=== PATIENT | male | born 1960 | race African-American/Black ===

== ENCOUNTER 2021-03-21 04:12 | Inpatient (IN) ==
[2021-03-21] MEDS ORDERED: SODIUM CHLORIDE 0.9% 1,000 ML IV STA (05:01)
[2021-03-21] MEDS: PANTOPRAZOLE INJ 200 MG in SODIUM CHLORIDE 0.9% 250 ML IV SCH (05:55)
[2021-03-21 06:13] LABS: Basophils % 0.1 % (0.0-0.8); Hematocrit 44.4 VOL% (42.0-52.0); Hemoglobin 14.9 GM/DL (14.0-18.0); Immature Granulocytes % 0.6 %; Immature Granulocytes Absolute 0.07 #; Lymphocytes # 0.8 10*3/uL (1.4-4.0); Lymphocytes % 6.8 % (21.2-54.2); Mean Corpuscular HGB Conc 33.6 GM/DL (32-36); Mean Corpuscular Volume 80.1 FL (87-102); Monocytes % 4.9 % (1.7-12.7); NRBC # 0.02 10*3/uL; Neutrophils % 87.6 % (38.7-73.9); Red Blood Count 5.54 MC/CUMM (3.8-5.5); Red Cell Distribution Width 17.5 % (9.3-17.3); White Blood Count 11.4 T/CUMM (4-12)
[2021-03-21 06:21] LABS: Platelet Count 50 T/CUMM (130-400)
[2021-03-21 06:23] LABS: INR 1.2; PT Patient Result 13.2 SECS (10.5-12.0); Partial Thromboplastin Time 26.6 SECS (23.9-33.8)
[2021-03-21 06:24] LABS: Albumin 2.3 G/DL (3.4-5.0); Bilirubin,Total 1.2 MG/DL (0.20-1.00); Calcium 8.3 MG/DL (8.5-10.1); Osmolality,Calculated 299.1 MOS/KG (273-304); Potassium 4.2 MMOL/L (3.5-5.1); Total Protein 5.6 G/DL (6.4-8.2)
[2021-03-21 06:45] LABS: Hypochromasia 1+; Microcytosis 1+
[2021-03-21 06:46] LABS: Ovalocytes Slight; Platelet Estimate Decreased
[2021-03-21] MEDS ORDERED: OCTREOTIDE 100 MCG/ML SYRINGE IV STA (07:20)
[2021-03-21] MEDS: OCTREOTIDE 500 MCG in SODIUM CHLORIDE 0.9% 100 ML IV SCH (08:07)
[2021-03-21] MEDS ORDERED: ONDANSETRON 4 MG/2 ML VIAL IV PRN ×2 (08:20)
[2021-03-21] MEDS ORDERED: GLUCAGON 1 MG VIAL IM PRN ×2 (08:20)
[2021-03-21] MEDS ORDERED: ACETAMINOPHEN 325 MG TABLET PO PRN ×2 (08:20→15:19)
[2021-03-21] MEDS ORDERED: DEXTROSE 50% 25 GM/50 ML VIAL IV PRN ×2 (08:20)
[2021-03-21] MEDS ORDERED: SODIUM CHLORIDE 0.45% 1,000 ML IV SCH (08:30)
[2021-03-21] MEDS: DEXT 5% NACL 0.9% KCL 20 MEQ 20 MEQ/1,000 ML BAG IV SCH (14:25)
[2021-03-21] MEDS: LEVOFLOXACIN INJ 500 MG/100 ML PREMIX IV SCH (14:25)
[2021-03-21] MEDS ORDERED: ERGOCALCIFEROL 50,000 UNIT CAPSULE PO SCH (15:30)
[2021-03-21] MEDS: SILVER SULFADIAZINE 1% CREAM 25 GM TUBE TOP SCH (17:00)
[2021-03-21] MEDS: methylPREDNISolone SOD SUC 125 MG/2 ML VIAL IV SCH (17:09)
[2021-03-21] MEDS: ALBUTEROL/IPRATROPIUM 3 ML NEB RESP TX SCH (20:30)
[2021-03-22] MEDS: methylPREDNISolone SOD SUC 125 MG/2 ML VIAL IV SCH ×3 (01:29→17:19)
[2021-03-22 02:22] LABS: Albumin 2.1 G/DL (3.4-5.0); Bilirubin,Total 0.8 MG/DL (0.20-1.00); Calcium 8.4 MG/DL (8.5-10.1); Osmolality,Calculated 292.4 MOS/KG (273-304); Potassium 4.5 MMOL/L (3.5-5.1); Risk Ratio 3.27; Total Protein 5.4 G/DL (6.4-8.2); VLDL Cholesterol 20.8 MG/DL
[2021-03-22] MEDS: DEXT 5% NACL 0.9% KCL 20 MEQ 20 MEQ/1,000 ML BAG IV SCH ×2 (04:52→18:45)
[2021-03-22] MEDS: PANTOPRAZOLE INJ 200 MG in SODIUM CHLORIDE 0.9% 250 ML IV SCH (05:06)
[2021-03-22] MEDS: ALBUTEROL/IPRATROPIUM 3 ML NEB RESP TX SCH ×4 (06:15→20:03)
[2021-03-22 06:44] LABS: Hematocrit 38.2 VOL% (42.0-52.0); Immature Granulocytes % 0.5 %; Immature Granulocytes Absolute 0.04 #; Lymphocytes # 0.6 10*3/uL (1.4-4.0); Lymphocytes % 7.6 % (21.2-54.2); Mean Corpuscular HGB Conc 32.5 GM/DL (32-36); Mean Corpuscular Volume 83.8 FL (87-102); Monocytes % 2.5 % (1.7-12.7); NRBC # 0.04 10*3/uL; Neutrophils % 89.4 % (38.7-73.9); Red Blood Count 4.56 MC/CUMM (3.8-5.5); Red Cell Distribution Width 17.4 % (9.3-17.3)
[2021-03-22 06:45] LABS: Hemoglobin 12.4 GM/DL (14.0-18.0); Platelet Count 50 T/CUMM (130-400); White Blood Count 7.6 T/CUMM (4-12)
[2021-03-22 07:02] LABS: Platelet Estimate Decreased
[2021-03-22] MEDS: SILVER SULFADIAZINE 1% CREAM 25 GM TUBE TOP SCH ×2 (08:45→18:46)
[2021-03-22] MEDS: LEVOFLOXACIN INJ 500 MG/100 ML PREMIX IV SCH (09:27)
[2021-03-22] MEDS: OCTREOTIDE 500 MCG in SODIUM CHLORIDE 0.9% 100 ML IV SCH ×3 (09:41→18:45)
[2021-03-23] MEDS: ALBUTEROL/IPRATROPIUM 3 ML NEB RESP TX SCH ×4 (01:12→20:20)
[2021-03-23] MEDS: OCTREOTIDE 500 MCG in SODIUM CHLORIDE 0.9% 100 ML IV SCH ×3 (04:51→21:30)
[2021-03-23] MEDS: PANTOPRAZOLE INJ 200 MG in SODIUM CHLORIDE 0.9% 250 ML IV SCH (04:51)
[2021-03-23 06:19] LABS: Hematocrit 34.4 VOL% (42.0-52.0); Hemoglobin 11.5 GM/DL (14.0-18.0); Immature Granulocytes % 0.6 %; Immature Granulocytes Absolute 0.06 #; Lymphocytes # 0.6 10*3/uL (1.4-4.0); Lymphocytes % 6.2 % (21.2-54.2); Mean Corpuscular HGB Conc 33.4 GM/DL (32-36); Mean Corpuscular Volume 81.3 FL (87-102); Monocytes % 5.1 % (1.7-12.7); NRBC # 0.07 10*3/uL; Neutrophils % 88.1 % (38.7-73.9); Platelet Count 42 T/CUMM (130-400); Red Blood Count 4.23 MC/CUMM (3.8-5.5); Red Cell Distribution Width 17.2 % (9.3-17.3); White Blood Count 9.7 T/CUMM (4-12)
[2021-03-23] MEDS: DEXT 5% NACL 0.9% KCL 20 MEQ 20 MEQ/1,000 ML BAG IV SCH ×3 (06:19→13:10)
[2021-03-23 06:43] LABS: Calcium 8.2 MG/DL (8.5-10.1); Osmolality,Calculated 278.8 MOS/KG (273-304); Potassium 4.1 MMOL/L (3.5-5.1)
[2021-03-23] MEDS: LACTATED RINGERS 1,000 ML IV SCH (08:16)
[2021-03-23] MEDS: LEVOFLOXACIN INJ 500 MG/100 ML PREMIX IV SCH (10:28)
[2021-03-23] MEDS: SILVER SULFADIAZINE 1% CREAM 25 GM TUBE TOP SCH (10:28)
[2021-03-24] MEDS: ALBUTEROL/IPRATROPIUM 3 ML NEB RESP TX SCH ×4 (01:24→19:32)
[2021-03-24] MEDS: DEXT 5% NACL 0.9% KCL 20 MEQ 20 MEQ/1,000 ML BAG IV SCH ×2 (03:19→16:20)
[2021-03-24 05:26] LABS: Eosinophils # 0.2 10*3/uL (0.0-0.87); Eosinophils % 2.2 % (0.00-10.9); Hemoglobin 10.3 GM/DL (14.0-18.0); Immature Granulocytes % 0.6 %; Immature Granulocytes Absolute 0.05 #; Lymphocytes # 1.3 10*3/uL (1.4-4.0); Lymphocytes % 16.6 % (21.2-54.2); Mean Corpuscular HGB Conc 33.2 GM/DL (32-36); Mean Corpuscular Volume 80.5 FL (87-102); Mean Platelet Volume 11.9 FL (9.6-12.0); Monocytes % 6.8 % (1.7-12.7); NRBC # 0.04 10*3/uL; Neutrophils % 73.8 % (38.7-73.9); Red Blood Count 3.85 MC/CUMM (3.8-5.5); Red Cell Distribution Width 16.8 % (9.3-17.3); White Blood Count 7.9 T/CUMM (4-12)
[2021-03-24] MEDS: OCTREOTIDE 500 MCG in SODIUM CHLORIDE 0.9% 100 ML IV SCH ×2 (05:27→15:02)
[2021-03-24 05:30] LABS: Platelet Count 65 T/CUMM (130-400)
[2021-03-24 05:40] LABS: Calcium 7.9 MG/DL (8.5-10.1); Osmolality,Calculated 276.7 MOS/KG (273-304); Potassium 3.8 MMOL/L (3.5-5.1)
[2021-03-24 06:00] LABS: Hypochromasia 1+; Microcytosis 1+; Target Cells Slight
[2021-03-24 06:01] LABS: Ovalocytes Slight; Platelet Estimate Decreased
[2021-03-24] MEDS ORDERED: MAGNESIUM SULF RIDER 2 GM/50 ML PREMIX IV PRN (08:10)
[2021-03-24] MEDS: LACTATED RINGERS 1,000 ML IV SCH (08:54)
[2021-03-24] MEDS: LEVOFLOXACIN INJ 500 MG/100 ML PREMIX IV SCH (08:57)
[2021-03-24] MEDS: SILVER SULFADIAZINE 1% CREAM 25 GM TUBE TOP SCH ×2 (19:01→22:18)
[2021-03-24] MEDS: PANTOPRAZOLE 40 MG VIAL IV SCH (20:51)
[2021-03-25] MEDS: ALBUTEROL/IPRATROPIUM 3 ML NEB RESP TX SCH ×2 (01:03→07:24)
[2021-03-25] MEDS: DEXT 5% NACL 0.9% KCL 20 MEQ 20 MEQ/1,000 ML BAG IV SCH (05:47)
[2021-03-25 07:47] LABS: Basophils % 0.1 % (0.0-0.8); Eosinophils # 0.3 10*3/uL (0.0-0.87); Hematocrit 36.5 VOL% (42.0-52.0); Hemoglobin 11.8 GM/DL (14.0-18.0); Immature Granulocytes % 0.7 %; Immature Granulocytes Absolute 0.06 #; Lymphocytes # 1.1 10*3/uL (1.4-4.0); Lymphocytes % 11.9 % (21.2-54.2); Mean Corpuscular HGB Conc 32.3 GM/DL (32-36); NRBC # 0.05 10*3/uL; Neutrophils % 78.3 % (38.7-73.9); Platelet Count 59 T/CUMM (130-400); Red Blood Count 4.45 MC/CUMM (3.8-5.5); Red Cell Distribution Width 17.1 % (9.3-17.3); White Blood Count 9.1 T/CUMM (4-12)
[2021-03-25 07:49] LABS: Osmolality,Calculated 271.8 MOS/KG (273-304)
[2021-03-25 07:54] LABS: Hypochromasia 1+; Microcytosis 1+
[2021-03-25 07:55] LABS: Platelet Estimate Decreased
[2021-03-25] MEDS: PANTOPRAZOLE 40 MG VIAL IV SCH (09:32)
[2021-03-25] MEDS: LEVOFLOXACIN INJ 500 MG/100 ML PREMIX IV SCH (09:34)
[2021-03-25] MEDS: SILVER SULFADIAZINE 1% CREAM 25 GM TUBE TOP SCH (09:35)
[2021-03-25 11:52] VITALS: BP 128/70
== END 2021-03-25 16:32 | disposition home health service (06) | DRG 368 ==
LOC: N.ED 04:12 → N.EDINP 07:18 → N.TELEN 09:19
PROVIDERS: ADMIT Hospitalist; ATTEND Hospitalist